=== PATIENT | male | born 1995 ===

== ENCOUNTER 2016-10-12 23:37 | Emergency (ER) | payer MEDICAID, OTHER ==
[~2016-10-12] VITALS: Ht 188 cm; Wt 146.0 kg
[2016-10-12 23:50] VITALS: BP 146/83; PULSE 83; RESP 18; O2SAT 92
[2016-10-13 00:06] VITALS: BP 122/64; PULSE 78; RESP 18; O2SAT 97
[2016-10-13] MEDS ORDERED: predniSONE 20 mg Tablet PO ONE (00:25)
[2016-10-13] MEDS ORDERED: Albuterol-Ipratropium 3 mL Inhalation Solution NEB ONE (00:25)
--- NOTE | 2016-10-13 00:25 | ED.REPORT ---
HPI-Dyspnea / Wheezing Date of Service Oct 13, 2016 ED Provider: Arya Rubalcava MD Pt is a 21 y/o male w/ a hx of asthma presenting to the ED c/o SOB and wheezing onset about 5 hours ago. This has happened once before in 2004 and he was diagnosed with an asthma exacerbation. The patient was seen at [facility] ED where he was told he had gallstones and later told he had an "abdominal infection". Pt denies cough, nasal congestion, chest pain, abdominal pain. His home inhaler has provided only mild relief. He denies history of PE or DVT. Nursing Notes Stated Complaint: DIFFICULTY BREATHING Chief Complaint: Respiratory Distress Nursing Notes Reviewed: Yes Allergies: Coded Allergies: No Known Allergies (Unverified , 10/12/16) Scheduled Prednisone (PredniSONE) 20 Mg Tablet 40 MG PO DAILY General Time Seen by MD: 00:03 Chief Complaint Shortness of breath, Wheezing Hx Obtained From: Patient Arrived By: Walk-in Sudden in Onset?: No Onset Occurred: 1 - 4 hours ago Symptom Duration: Since onset Location: : None Severity: Current: No pain currently Severity: Maximum: No pain Recent Healthcare: Previous diagnosis Similar Sx Previous: Yes Past Medical History Past Medical History Asthma Past Surgical History None reported Smoking History Unknown if Ever Smoker Social History Other Social History: Good social support Ambulatory Status Independent Review of Systems Constitutional: Denies: Chills, Fever Respiratory: Reports: Shortness of breath, Wheezing, Denies: Non-productive cough Cardiovascular: Denies: Chest pain Complete sys rev & neg: except as marked. GI: Denies: Abdominal pain, Nausea, Vomiting Physical Exam Initial Vital Signs Vital Signs (First) Date Time Temp Pulse Resp B/P Pulse Ox O2 Delivery O2 Flow Rate FiO2 10/12/16 23:50 37.0 83 18 146/83 92 Room Air Initial VS: Reviewed, Vital signs abnormal Head / Eyes: Atraumatic, Normocephalic, PERRL ENT: Mucous membranes moist, Conjunctiva normal, No scleral icterus Abdomen / GI: Soft Extremities: Vascular intact, Neuro intact, No swelling, No tenderness Skin: Warm, Dry, No cyanosis Neurologic: Alert, Oriented, Nonfocal Psychiatric: Mood/affect normal, Behavior normal, Normal thought content General/Constitutional: Awake, Alert, No acute distress, Cooperative, Not toxic appearing Appearance / Presentation: Positive: Obese Neck: Atraumatic, Supple, No meningismus, Full range of motion Respiratory / Chest: Atraumatic, Breath sounds NL, Breath sounds = bilat, No respiratory distress, No rales, No rhonchi, No wheezing, No retractions, No stridor, No chest tenderness, No chest wall deformity, No crepitus Cardiovascular: Heart rate NL, Regular rhythm, Heart sounds NL, No gallop, No murmurs, No rubs, Cap refill not delayed, Peripheral circulation NL Interpretation & Diagnostics Lab Results Interpretation Test 10/13/16 01:15 Hold Urine Received (Received) X-Ray Chest Interpretation View: Portable, 1 view Interpretation / Wet Read by: Wet read ED physician NL X-Ray Chest Findings: No infiltrate, No acute disease Re-Eval/Medical Decision Med Decision/Clinical Course 21-year-old male history of asthma presenting complaint shortness of breath 1 day. No associated symptoms. Oxygen is 97% on room air. Mild wheezing. Chest x-ray clear. Patient was given 1 albuterol nebulizer and felt much better. Patient was given 1 dose of prednisone. Patient will be treated for asthma exacerbation with 6 days prednisone. Albuterol as needed. Return precautions given. Re-Evaluation/Progress : Time of Eval: 01:18 )( Re-Eval Resp / Chest: Breath sounds normal Treatment Summary: Albuterol nebulizer x 1 Patient Status: Condition improved, Moderate relief Re-Evaluation/Progress Note: Pt rechecked. Informed pt of plan for treatment. Pt understands and agrees with plan for treatment. F/U instructions and RTER warnings given. All questions addressed. Counseled Regarding: Diagnosis, Need for follow-up, When/why to return to ED Discharge & Departure Impression: Primary Impression: Asthma exacerbation Disposition: Home Discharge Condition All VS Reviewed: Yes Condition: Stable Patient Instructions: Asthma (ED) Additional Instructions: Your symptoms are consistent with an asthma exacerbation which may have been caused by a virus. Take Prednisone as directed. Return to the emergency department for increased shortness of breath, chest pain , high fever, vomiting, or for other concerning symptoms. Follow-up with your doctor later this week for re-evaluation. Referrals: [facility] (PCP) [facility] Scribe Attestation Portions of this note were transcribed by Tone Rivera. I, Dr. Rubalcava, personally performed the history, physical exam and medical decision-making; I reviewed and confirmed the accuracy of the information in the transcribed note. Signed by Erasto Jacobs, 10/13/16 - 29 Arya Rubalcava MD Oct 13, 2016 00:25 TONE RIVERA Oct 13, 2016 00:29
[2016-10-13 01:04] VITALS: RESP 20; O2SAT 95
[2016-10-13] MEDS ORDERED: PRE20 PO (01:18)
[2016-10-13 01:26] VITALS: BP 128/54; PULSE 83; RESP 16; O2SAT 96
[2016-10-13 01:34] VITALS: BP 128/54; PULSE 94; RESP 22; O2SAT 95
--- NOTE | 2016-10-13 09:58 | DRSVH ---
PROCEDURE: X-RAY CHEST ONE VIEW, PORTABLE ([id number]) INDICATIONS: dyspnea TECHNIQUE: One view of the chest was acquired. COMPARISON: None. FINDINGS: Surgical changes and devices: None. Lungs and pleura: No pleural effusions or pneumothorax. Lungs are clear. Mediastinum: Mediastinal contours appear normal. Heart size is normal. Bones and chest wall: No suspicious bony lesions. Overlying soft tissues appear unremarkable. IMPRESSION: No acute cardiopulmonary disease. Dictated by: Devante GALEANA Interpreted: Nohemy Granados MD on 10/13/2016 at 9:57 Transcribed by: JENIFER on 10/13/2016 at 9:58 Approved by: Nohemy Granados M.D. on 10/13/2016 at 16:43
== END 2016-10-13 01:35 | disposition home or self-care (01) ==
LOC: SED 23:37
DX: J45.901 Unspecified asthma with (acute) exacerbation (principal)
CPT/HCPCS: 71010; 99284; J7620